=== PATIENT | male | born 1995 | race Two or more races ===

== ENCOUNTER 2025-04-21 16:28 | Emergency (ER) | payer BC, SELFPAY ==
[2025-04-21 16:30] VITALS: BMI 28.1
[2025-04-21 16:39] VITALS: BP 133/80; PULSE 74; RESP 18; TEMP 36.9; O2SAT 95
--- NOTE | 2025-04-21 17:00 | PD.EDADULT ---
ED General RME/HPI General Stated complaint: LAC TO R INDEX FINGER Time Seen by Provider: 04/21/25 16:33 Arrival date/time: 04/21/25 16:28 RME / HPI complaint: Finger laceration RME / HPI narrative: 30-year-old male, [id number], unknown Tdap who presents to the ER after pulling a chain with his hands and subsequently cutting his right second digit about an hour prior to arrival. Denies any numbness, tingling, weakness, fever. Related Data Previous Rx's ?Medication ?Instructions ?Recorded cephalexin 500 mg capsule 500 mg PO QID 5 days #20 caps 04/21/25 Allergies Allergy/AdvReac Type Severity Reaction Status Date / Time No Known Allergies Allergy Verified 04/21/25 16:29 ED Exam Narrative Physical exam: Constitutional: Vital Signs Reviewed. Well appearing. No acute distress. Not toxic appearing. Head: Normocephalic, atraumatic. Eyes: Conjunctiva clear. ENT: Mucous membranes moist. Neck: Trachea midline. Normal range of motion. No nuchal rigidity. Respiratory: Normal effort. No respiratory distress or accessory muscle use. Neuro: Alert and oriented. Speech normal. No focal gross motor or sensory deficits observed. Skin: Warm, dry, normal color. 1.5 cm laceration noted to the proximal palmar aspect of right second digit which extends to the subcutaneous. Wound explored to base without foreign body or deep space injury. Cap refill less than 2 seconds. FROM and Strength 5/5 for all other digits at MCP, PIP, DIP joints. FDP function intact (DIP flexion preserved upon isolation). Confirms flexor digitorum profundus integrity. FDS function intact (PIP flexion preserved upon isolation). Confirms flexor digitorum superficialis integrity. Thumb: abduction and adduction intact; flexion and extension intact at MCP and IP joint. Sensation intact to light touch in radial, ulnar, and median nerve distributions. No snuffbox tenderness. Psych: Pleasant. Normal affect. Cooperative. Course Quality Measures none Orders Category Date Time Status Miscellaneous Nursing Order NOW Care 04/21/25 17:21 Completed Set Up Suture Tray STAT Care 04/21/25 16:53 Completed Set Up Suture Tray STAT Care 04/21/25 16:56 Completed Wound Care NOW Care 04/21/25 16:56 Completed Lidocaine 1% Vial 20 ml [Xylocaine 1% 20 ML] Med 12/09/25 16:53 Discontinued 10 ml IM X1 ONE TET,DIP/PERT AC (Adult)-Tdap [Boostrix Adult (Tdap) Med 04/21/25 16:56 Discontinued Vacc] 0.5 ml IMI .ONCE ONE Vital Signs Vital signs: Vital Signs Temperature 98.5 F 04/21/25 16:39 Pulse Rate 74 04/21/25 16:39 Respiratory Rate 18 04/21/25 16:39 Blood Pressure 133/80 H 04/21/25 16:39 Pulse Oximetry (%) 95 04/21/25 16:39 Oxygen Delivery Method Room Air 04/21/25 16:39 PROCEDURES: Laceration Laceration 1: Site: hand Side (If applicable): right Size (cm): 2 Description: linear Local Anesthetic: lidocaine 1% Amount of anesthesia used (mL): 2 Pre-repair: wound explored, irrigated extensively and deep structures intact Skin layer closed with: nylon Suture size (cm): 4-0 Number of sutures: 2 Technique: simple, interrupted Discharge Plan Plan Patient Disposition: HOME (Self Care) Patient condition on transfer: Stable Prescriptions/Referrals Prescriptions/Med Rec: New cephalexin 500 mg capsule 500 mg PO QID 5 Days Qty: 20 0RF Problem List Clinical Impression: Laceration of right index finger Patient/Caregiver Discharge Instructions Discharge Activity: return to work once clear Other Activity Instructions:: No use of right hand until cleared by primary Dr. Must keep wound clean and dry. Education Materials: ED Laceration: All Closures Additional Instructions: Follow up with your primary medical doctor within 48 hours. Return to the Emergency Room immediately for any new, worsening, continuing symptoms or any concerns at all. Return to the Emergency Room within 48 hours if you are unable to follow up with your primary medical doctor within 48 hours. Return to the ER in 10 to 12 days for suture removal. Print Language: Pashto Stand Alone Forms: Dena Award Info., Patient Portal Info Letter PA/MAGAZINE WRITER Supervising Physician PA/MAGAZINE WRITER Supervising Physician: Dr. Castro MDM Narrative MDM hospital course (for use when minimal MDM required): Concern for laceration Wound explored to base without tendon injury, FB tdap update prn, wound thoroughly irrigated, wound well approximated Risk and benefits of x-ray discussed with patient who ultimately declined as he does not believe he has an occult foreign body Advised wound care edu, inevitable scar formation, need to return without fail for suture removal Extremity remains DNVI with soft compartments Clinical Information Provided by: patient Medication Administration(s) Medication Administration History Discontinued Medications Diphtheria/Tetanus/Acell Pertussis (Diphth,Pertuss(Acell),Tet Vac 0.5 Ml Syr- Adult) 0.5 ml IMi .ONCE ONE Stop: 04/21/25 16:57 Last Admin: 04/21/25 17:50 Dose: Not Given Documented By: ER Non-Admin Reason: Patient Refused Lidocaine HCl (Lidocaine Hcl 1% 20 Ml Vial) 10 ml IM X1 ONE Stop: 04/21/25 16:54 Last Admin: 04/21/25 17:04 Dose: 10 ml Documented By:
[2025-04-21] MEDS: LIDOCAINE HCL 1% 20 ML VIAL 10 ML IM (17:04)
== END 2025-04-21 17:53 | disposition home or self-care (01) ==
LOC: SERX 17:45
PROVIDERS: Emergency Provider Emergency Medicine
DX: S61.210A Laceration without foreign body of right index finger without damage to nail, initial encounter (principal); W45.8XXA Other foreign body or object entering through skin, initial encounter; Y93.89 Activity, other specified
CPT/HCPCS: 12002; 96372; 99281; J3490